=== PATIENT | female | born 1975 | race Caucasian/White ===

== ENCOUNTER 2020-09-23 10:10 | Emergency (ER) | payer SELFPAY ==
[~2020-09-23] VITALS: Ht 157.5 cm; Wt 72.6 kg
[2020-09-23 10:10] VITALS: BP_SYST 131
--- NOTE | 2020-09-23 10:10 | NUR ---
Patient triaged and placed in waiting room. VSS and patient appears in no acute distress at this time. Accompanied by SELF, awaiting available bed, and MD notified of need for MSE.
--- NOTE | 2020-09-23 10:10 | NUR ---
PT STATES THAT SHE MAY JUST GO HOME, STATES SHE IS PROBABLY JUST HAVING ANXIETY. ENCOURAGED PT TO WAIT TO BE SEEN.
--- NOTE | 2020-09-23 10:42 | NUR ---
PT NOTIFIED ADMITTING THAT SHE DID NOT WANT TO WAIT, PT LEFT WITHOUT BEING SEEN
== END 2020-09-23 10:42 | disposition left against medical advice (07) ==
LOC: SED 10:10
DX: R00.1 Bradycardia, unspecified (principal); Z53.21 Procedure and treatment not carried out due to patient leaving prior to being seen by health care provider